=== PATIENT | female | born 1955 | race Caucasian/White ===

== ENCOUNTER 2023-08-25 22:53 | Inpatient (IN) | payer OTHER, SELFPAY ==
[2023-08-25 17:21] VITALS: BP 123/63
[2023-08-25 17:40] LABS: % Basophils 0.3 % (0-2); % Eosinophils 0.1 % (0-6); % Immature Granulocytes 1.2 % (0-0.5); % Monocytes 8.3 % (1.7-9.3); % Neutrophils 84.1 % (42.2-75.2); Absolute Basophils 0.1 10^3/uL (0-0.2); Absolute Immature Granulocytes 0.3 10^3/uL (0-0.05); Absolute Lymphocytes 1.4 10^3/uL (1.2-3.4); Absolute Monocytes 1.9 10^3/uL (0.1-0.6); Absolute Neutrophils 19.4 10^3/uL (1.4-6.5); Hematocrit 33.1 % (37.0-47.0); Hemoglobin 11.4 g/dL (12.0-16.0); Mean Corp Hgb Conc. 34.4 g/dL (33.0-37.0); Mean Corpuscular Hgb 31.7 pg (27.0-31.0); Mean Corpuscular Volume 91.9 fL (81.0-99.0); Nucleated Red Blood Cells % 0 %; Platelet Count 203 10^3/uL (130-400); Red Cell Dist. Width 11.7 % (11.5-14.5); White Blood Cell Count 23.1 10^3/uL (4.8-10.8)
[2023-08-25 17:55] LABS: COVID-19 Antigen Negative (Negative)
[2023-08-25 18:05] LABS: ALT (SGPT) 17 U/L (0-35); AST (SGOT) 21 U/L (14-36); Alkaline Phosphatase 140 U/L (38-126); Blood Urea Nitrogen 22 mg/dl (7-17); Calcium 8.6 mg/dl (8.4-10.2); Carbon Dioxide 21 mmol/L (22-30); Chloride 101 mmol/L (98-107); Glucose 145 mg/dl (70-99); Potassium 3.6 mmol/L (3.5-5.1); Sodium 133 mmol/L (135-145); Total Bilirubin 0.8 mg/dl (0.2-1.3); Total Protein 6.8 g/dl (6.3-8.2); eGFR > 60.00
[2023-08-25 19:06] VITALS: BMI 27.5
[2023-08-25 20:00] VITALS: BP 130/63
[2023-08-25 21:26] VITALS: BP 119/75
--- NOTE | 2023-08-25 21:54 | ED.GENMED ---
History of Present Illness
General
Chief Complaint: Breathing Problem
Source: patient
Exam Limitations: none
Time Seen by Provider: 08/25/23 20:17
Nursing documentation reviewed up to this point in time: agreed with
History of Present Illness
History of Present Illness:
Patient to ED for fever/bodyaches. States Friday she developed a sore throat. Friday fevers started. Reports temp as high as 103.8. Complains of chills and body aches. Reports occasional cough. Decreased appetite. No nausea, +diarrhea. She
was seen at and advised to come to ED for pneumonia. 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 No home O2. Brought to ED by family for eval. She is visiting from [place]
Past History
Past History
ED Past Medical History: COPD, HTN and Hypercholesterolemia
ED Past Surgical History: None
Social History
Tobacco: Former smoker (quit smoking last summer)
Alcohol: None
Review of Systems
Review of Systems
Allergies reviewed?: Yes
All Other Systems: ROS reviewed and negative except as documented in HPI and ROS
Constitutional: Reports fever, fatigue and chills
EENT: Reports no symptoms
Respiratory: Reports cough
Cardiac: Reports no symptoms
ABD/GI: Reports diarrhea and other (decreased appetite)
: Reports no symptoms
Musculoskeletal: Reports no symptoms
Skin: Reports no symptoms
Neurological: Reports no symptoms
Psychiatric: Reports no symptoms
Phy Exam
General Physical Exam
General Presentation: well appearing
General age: appears stated age
General Skin: warm
General Habitus: normal
General Mental: alert
Cardiovascular Exam
Cardiovascular Exam: regular rate/rhythm and no edema
Pulmonary Exam
Pulmonary Exam: chest non tender
Cough: coarse cough
Breath Sounds: Absent breath sounds: right lower
Gastrointestinal Exam
Gastrointestinal Exam: normal bowel sounds, non tender, soft and no organomegaly
Musculoskeletal Exam
Musculoskeletal Exam: full ROM and neuro vasc intact
Skin Exam
Skin Exam: normal color and warm/dry
Psychiatric Exam
Psychiatric Exam: normal mood/affect
Scores
Heart Failure Risk
Heart Failure Risk Score: Not Applicable
Course
Orders/Labs/Results
Orders:
Orders
08/25/23 Breakfast
Cholesterol Lowering
At Your Request: Full Participation
Cholesterol Lowering: Sodium, 2 Gram
08/25/23 17:32
COVID-19 Antigen Urgent
Source: Nasal Swab
Complete Blood Count/With Diff Urgent
Comprehensive Metabolic Panel Urgent
Blood Culture Urgent
[place] Source: Blood/Venous
Specimen Description:
08/25/23 19:18
Lactic Acid Urgent
Blood Culture Urgent
[facility] Source: Blood/Venous
Specimen Description:
08/25/23 20:17
CR Chest - 2 Views Urgent
Comment:
Reason For Exam: FEVER, COUUGH
08/25/23 21:45
CefTRIAXone [Rocephin] 1,000 mg IV NOW STA
Doxycycline [Vibramycin] 100 mg PO NOW STA
08/25/23 22:32
Sterile Water [Sterile Water For Injection] 10 ml .ROUTE .[facility]
08/25/23 22:35
Admit/Transfer Patient As Directed
Co-Sign Provider:
Level of Care: Inpatient admission
Assign to:: Medical/Surgical
Physician / Group: [email or web address]
Diagnosis: PNA, sepsis
Reason for Hospitalization: PNA, sepsis
Expected length of stay greater than two midnights?: Yes
ELOS- Estimated Length of Stay in days: 3
I certify the patient meets the requirements for IP care: Yes
Code Status As Directed
Resuscitation Status: Full Code
08/25/23 23:27
0.9% Sodium Chloride 1000 ml [Nss] 1,000 ml IV 80 mls/hr
Acetaminophen [Tylenol] 650 mg PO Q4HPRN PRN
Ipratropium/Albuterol Sulfate [Duoneb] 3 ml INH R Q4HPRN PRN
08/25/23 23:27
Legionella Urinary Antigen Routine
[facility] Source: Urine
Specimen Description:
Activity As Directed
Activity Level: Out of Bed-Early Mobility
Intake/ Output As Directed
Frequency: Per unit guidelines
Vital Signs As Directed
Frequency: Per unit guidelines
Weight As Directed
Frequency: Once
Comment: on admission
Pt Eval And Treat Routine
Activity Level: With Assistance
DX Deep Vein Thrombosis Video Routine
08/26/23 06:00
Basic Metabolic Panel IN AM
Complete Blood Count/No Diff IN AM
Lactic Acid IN AM
08/26/23 08:00
Guaifenesin [Mucinex] 600 mg PO Q12
08/26/23 18:00
Enoxaparin Sodium [Lovenox] 40 mg SC QPM
Abnormal Lab Results
08/25/23
17:32
WBC 23.1 H 10^3/uL
(4.8-10.8)
RBC 3.60 L 10^6/uL
(4.20-5.40)
Hgb 11.4 L g/dL
(12.0-16.0)
Hct 33.1 L %
(37.0-47.0)
MCH 31.7 H pg
(27.0-31.0)
Abs Immat Gran (auto) 0.3 H 10^3/uL
(0-0.05)
Absolute Neuts (auto) 19.4 H 10^3/uL
(1.4-6.5)
Absolute Monos (auto) 1.9 H 10^3/uL
(0.1-0.6)
Immature Gran % 1.2 H %
(0-0.5)
Neutrophils % 84.1 H %
(42.2-75.2)
Lymphocytes % 6.0 L %
(20.5-51.1)
Sodium 133 L mmol/L
(135-145)
Carbon Dioxide 21 L mmol/L
(22-30)
BUN 22 H mg/dl
(7-17)
Glucose 145 H mg/dl
(70-99)
Alkaline Phosphatase 140 H U/L
(38-126)
08/25/23 17:32
08/25/23 17:32
Vital Signs
Initial and Last Documented VS:
Initial Vital Signs
Temp Pulse Resp BP Pulse Ox
100.2 F 84 18 123/63 95
08/25/23 17:21 08/25/23 17:21 08/25/23 17:21 08/25/23 17:21 08/25/23 17:21
Last Documented Vital Signs
Temp Pulse Resp BP Pulse Ox
98.6 F 71 24 119/75 96
08/25/23 21:38 08/25/23 21:30 08/25/23 21:30 08/25/23 21:26 08/25/23 21:30
*Radiology
Radiology exam reviewed: radiology read reviewed (severe pneumonia)
*Pulse Oximetry
Patient hypoxic: no
*Critical Care Note
Total Time (30-74mins, 75-104mins- exclusive of procedures): Not Applicable
Update Note
Update Note:
Patient sent to ED from for severe pneumonial. Patient reports fever and chlls since Friday. Xray tonight confirms pneumonia. Ceftriaxone and doxycycline started in dept. SHe is admitted to hospitalists service.
ED Attending Note
-
Portions of this chart may have been created with voice recognition software.� Occasional wrong word or��sound alike� substitutions may have occurred due to the inherent limitations of voice recognition software.
Discharge Plan
Departure
Patient Disposition: Admit
Date of Disposition: 08/25/23
Time of Disposition: 22:02
Presentation/result/management discussed w/ accepting MD/DO: Hospitalist
Patient with high blood pressure during this ER visit?: No
Condition: Fair
Covid-19: Not Applicable
Discharge Problem:
Pneumonia
Interventions
Interventions:
*Risk Screen - Suicide Last Done: 08/25/23 19:10
*General Assessment Last Done: 08/25/23 19:10
*Neglect/Abuse Screening Last Done: 08/25/23 19:10
ED- Fall Risk Assessment Last Done: 08/25/23 19:10
*ED COVID-19 Vaccine History Last Done: 08/25/23 19:10
ED- Cardiac Assessment Last Done: 08/25/23 19:10
ED- Pulmonary Assessment Last Done: 08/25/23 19:10
--- NOTE | 2023-08-25 22:31 | HPS.HSE ---
Family Physician
-
Family Physician: NOT KNOW UNKNOWN - PT DOES
Chief Complaint
-
[place] [facility] [place]
History of Present Illness
68F HX COPD, HTN, HLD seen at ER from evaluation:
Acute fever with chills : T 110.8 at ER
- [place] [facility] [place]
- OP CXR concern for PNA sent to ER
- associated with cough
- associated myalgia
- POS N/ V
At ER:
- T 100.8 tachypneic 20s POx mid 90s on RA
Medical History
Past Medical History
Past Medical History: Reports COPD, HTN and Hypercholesterolemia
Past Surgical History: Reports None
Social History
Tobacco: Former Smoker (quit smoking last summer)
Drug: None
Family History
Family History: Not pertinent
Allergies / Home Medications
Allergies reflects when Allergies were last updated in [employer].
Home Medications with original date entered in [employer]
Allergy/Medication List:
Allergies
Allergy/AdvReac Type Severity Reaction Status Date / Time
No Known Allergies Allergy Unverified 08/25/23 17:23
If medication reconciliation has not been performed, why?: Medication List N/A
Review of Systems
-
Constitutional: Reports Fever and Chills
EENT: Reports No Symptoms
Respiratory: Reports See HPI, Cough and Trouble Breathing
Cardiac: Reports No Symptoms
Abdomen/GI: Reports No Symptoms
: Reports No Symptoms
Musculoskeletal: Reports No Symptoms
Skin: Reports No Symptoms
Neurological: Reports No Symptoms
Endocrine: Reports No Symptoms
Hematologic/Lymphatic: Reports No Symptoms
Psych: Reports No Symptoms
Physical Exam
Vital Signs
Vital Signs
Temp Pulse Resp BP Pulse Ox
98.6 F 71 24 119/75 96
08/25/23 21:38 08/25/23 21:30 08/25/23 21:30 08/25/23 21:26 08/25/23 21:30
Physical Exam
General: Well Developed, Well Nourished and No Apparent Distress
HEENT: NormoCephalic, Moist mucous membranes and Atraumatic
Respiratory: Clear
Cardiac: S1/S2 and Regular Rhythm; No Murmur or Rub
GI: Soft, Non Tender, Non Distended and Normal Bowel Sounds; No Organomegaly
Rectal: Deferred by Provider
Musculoskeletal: No Clubbing, No Cyanosis and No Edema
Skin: No Rash
Neuro: Nonfocal/grossly intact
Laboratory Results
-
08/25/23 17:32
08/25/23 17:32
Laboratory Results
Lactic Acid Cancelled 08/25/23 20:17
Total Bilirubin 0.8 mg/dl (0.2-1.3) 08/25/23 17:32
AST 21 U/L (14-36) 08/25/23 17:32
ALT 17 U/L (0-35) 08/25/23 17:32
Alkaline Phosphatase 140 U/L (38-126) H 08/25/23 17:32
Data Reviewed
-
Diagnostic Radiology: Report Reviewed by me
Lab Data: Labs Reviewed by me
Impression/Plan
-
Reviewed VS: T100.8 tachypneic 20s POx mid 90s on RA HR 70 BP 130/60 --> 120/75
Data
WCC 23
Hgb 11.4
Plt 203
Na 133
CO2 21
BUN 22
nl Cr
NEG Covid
CXR: Severe right mid-lung pneumonia.
NO PRIOR hospitalist admission:
ASSESSMENT & PLAN
Pending Rx reconciliation
PNA @ [facility] likely CAP
Associated sepsis ( T > 100.9, RR > 20 )
Eval for Bacteremia ?
Recent former smoker since this Summer
- agree with IV CFTX and PO Doxycycline
- IVF NS
- Nebs PRN
- Ur Legionella
- BCx
- Tylenol PRN
- f/u BCx
Essential HTN
- cont all OP chris
HLD
DVT Px: LMWH
Code: Full code
Ip MS
[2023-08-25] MEDS: ROCEPHIN 1000 MG IV (22:37)
[2023-08-25] MEDS: VIBRAMYCIN 100 MG PO (22:37)
[2023-08-25 23:33] VITALS: BMI 26.8
[2023-08-25 23:34] VITALS: BP 134/69
[2023-08-25] MEDS: NSS 1000 IV (23:59)
[2023-08-26] MEDS: TYLENOL 650 MG PO (00:17)
[2023-08-26 06:39] LABS: Hemoglobin 10.8 g/dL (12.0-16.0); Mean Corp Hgb Conc. 33.8 g/dL (33.0-37.0); Mean Corpuscular Hgb 31.7 pg (27.0-31.0); Mean Corpuscular Volume 93.8 fL (81.0-99.0); Mean Platelet Volume 10.1 fL (7.4-10.4); Platelet Count 209 10^3/uL (130-400); Red Blood Cell Count 3.41 10^6/uL (4.20-5.40); Red Cell Dist. Width 11.9 % (11.5-14.5); White Blood Cell Count 19.8 10^3/uL (4.8-10.8)
[2023-08-26 06:59] LABS: Blood Urea Nitrogen 21 mg/dl (7-17); Calcium 8.5 mg/dl (8.4-10.2); Carbon Dioxide 26 mmol/L (22-30); Chloride 104 mmol/L (98-107); Estimated Creatinine Clearance 63 ml/min; Glucose 102 mg/dl (70-99); Potassium 3.5 mmol/L (3.5-5.1); Sodium 138 mmol/L (135-145); eGFR > 60.00
[2023-08-26 07:00] VITALS: BP 109/62
[2023-08-26] MEDS: MUCINEX 600 MG PO ×2 (08:12→21:04)
[2023-08-26] MEDS: VIBRAMYCIN 100 MG PO ×2 (08:12→21:04)
--- NOTE | 2023-08-26 08:31 | W.PN.HOSP.TC ---
Today's Communication/Plan
-
see outlined plan
Assessment / Plan
Assessment / Plan
Assessment:
Community acquired pneumonia
Former smoker x 30 years, reports hx of lung scarring from previous COVID infection
- from [place], and follows with Pulmonary there
- CXR showing Severe right mid-lung pneumonia.
- for now will continue Rocephin, Doxycycline, day 1
- follow cultures
- IS/Acapella
- Supportive care/Tylenol
Essential HTN
- continue Norvasc/Losartan
HLD - statin
Hyponatremia
- improved with IVF
DVT ppx: Lovenox
Code: Full
Anticipated Discharge: 24 - 48 hours
Subjective/Interval History
-
Date of Service: August 26, 2023
denies SOB or cough
no fevers
reports some body aches
Objective Data
-
Labs:
Laboratory Results
08/26/23
06:08
WBC 19.8 H
Hgb 10.8 L
Hct 32.0 L
Plt Count 209
Sodium 138
Potassium 3.5
Chloride 104
Carbon Dioxide 26
BUN 21 H
Creatinine 0.8
Glucose 102 H
Calcium 8.5
Vital Signs:
Vital Signs
Temp Pulse Resp BP Pulse Ox
98.2 F 74 16 109/62 96
08/26/23 07:00 08/26/23 07:54 08/26/23 07:54 08/26/23 07:00 08/26/23 07:54
Physical Exam
-
General: No Apparent Distress
HEENT: Normocephalic and Atraumatic
Respiratory: Rhonchi (R mid lung); Negative Wheezes
Cardiac: Regular Rhythm and S1/S2
Genito-urinary: No Costovertebral Tender
Musculoskeletal: No Edema
Neuro: AO x 3
Psych: Calm
Data Reviewed
-
Total Time Spent with Patient (in minutes): 42
Labs: Labs Reviewed by me
[2023-08-26] MEDS: ZOFRAN 4 MG IV (10:32)
[2023-08-26 11:20] VITALS: BP 113/57; PULSE 73; O2SAT 96
[2023-08-26] MEDS: NSS 1000 IV (11:28)
[2023-08-26 11:36] VITALS: BP 113/57; PULSE 77; O2SAT 96
--- NOTE | 2023-08-26 11:42 | PTOTSP ---
Pt is independent with bed mobility, transfers, and ambulation without need for any assistive devices and is able to climb steps with a railing. No acute PT needs were identified. PT will sign off.
[2023-08-26 15:00] VITALS: BP 111/73
--- NOTE | 2023-08-26 16:13 | CM ---
Reviewed chart, met with patient to obtain information for assessment. Patient was with her daughter who was at bedside. Patient stated that she lives with her step daughter in [place] (she is here on vacation), in a multi-story home with 3 steps
to enter. She described herself as independent with all of her ADL, personal care, bathing and dressing. 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 She drives and can get to appointments and do her own shopping.
Patient denied any DME in her home.
She has never had VN services.
She has not been to a SNF.
Patient has a prescription plan and uses, [facility] for her medications
Her PCP is, not listed.
Patient stated that she feels she is at her baseline level of functioning and will be able to go home when she is medically stable.
Plan: Case management will continue to follow and assist with discharge planning. Patient would like to return home to [place] when she is medically cleared for discharge.
[2023-08-26] MEDS: LOVENOX 40 MG SC (17:20)
[2023-08-26] MEDS: STERILE WATER FOR INJECTION 10 ML IV (21:06)
[2023-08-26] MEDS: ROCEPHIN 1000 MG IV (21:06)
[2023-08-26 23:08] VITALS: BP 127/56
[2023-08-27] MEDS: NSS 1000 IV (00:11)
[2023-08-27 07:00] VITALS: BP 135/68
[2023-08-27 07:02] LABS: % Basophils 0.7 % (0-2); % Eosinophils 3.4 % (0-6); % Immature Granulocytes 2.1 % (0-0.5); % Lymphocytes 25.2 % (20.5-51.1); % Monocytes 9.6 % (1.7-9.3); Absolute Basophils 0.1 10^3/uL (0-0.2); Absolute Eosinophils 0.4 10^3/uL (0-0.7); Absolute Immature Granulocytes 0.2 10^3/uL (0-0.05); Absolute Lymphocytes 2.6 10^3/uL (1.2-3.4); Absolute Neutrophils 6.2 10^3/uL (1.4-6.5); Hemoglobin 9.9 g/dL (12.0-16.0); Mean Corpuscular Hgb 30.8 pg (27.0-31.0); Mean Corpuscular Volume 93.5 fL (81.0-99.0); Nucleated Red Blood Cells % 0 %; Platelet Count 222 10^3/uL (130-400); Red Blood Cell Count 3.21 10^6/uL (4.20-5.40); Red Cell Dist. Width 11.9 % (11.5-14.5); White Blood Cell Count 10.5 10^3/uL (4.8-10.8)
[2023-08-27 07:39] LABS: Blood Urea Nitrogen 11 mg/dl (7-17); Calcium 8.1 mg/dl (8.4-10.2); Carbon Dioxide 24 mmol/L (22-30); Chloride 111 mmol/L (98-107); Estimated Creatinine Clearance 83 ml/min; Glucose 91 mg/dl (70-99); Potassium 3.4 mmol/L (3.5-5.1); Sodium 140 mmol/L (135-145); eGFR > 60.00
[2023-08-27] MEDS: VIBRAMYCIN 100 MG PO ×2 (08:16→20:22)
[2023-08-27] MEDS: MUCINEX 600 MG PO ×2 (08:16→20:22)
--- NOTE | 2023-08-27 10:20 | PTCARENOTE ---
patient reports breathing improved, tolerating diet, sitting oob in chair, vss, will continue to monitor.
--- NOTE | 2023-08-27 11:14 | W.PN.HOSP.TC ---
Today's Communication/Plan
-
Monitor vital signs
see plan
Replete potassium
Continue with antibiotics
Assessment / Plan
Assessment / Plan
Assessment:
Community acquired pneumonia
Former smoker x 30 years, reports hx of lung scarring from previous COVID infection
- from [place], and follows with Pulmonary there
- CXR showing Severe right mid-lung pneumonia.
- continue Rocephin, Doxycycline
- covid,legionella,strep neg; bcx NGTD
- IS/Acapella
- Supportive care/Tylenol
Hypokalemia
replete
Mild anemia
Continue to monitor, denies any bleeding
Essential HTN
- continue Norvasc/Losartan
HLD - statin
Hyponatremia
- improved with IVF
DVT ppx: Lovenox
Code: Full
General: No Apparent Distress
HEENT: Normocephalic and Atraumatic
Respiratory: Rhonchi (R mid lung); Negative Wheezes
Cardiac: Regular Rhythm and S1/S2
Genito-urinary: No Costovertebral Tender
Musculoskeletal: No Edema
Neuro: AO x 3
Psych: Calm
Anticipated Discharge: 24 - 48 hours
Subjective/Interval History
-
Date of Service: August 27, 2023
denies pain
Objective Data
-
Labs:
Laboratory Results
08/27/23
06:33
WBC 10.5
Hgb 9.9 L
Hct 30.0 L
Plt Count 222
Sodium 140
Potassium 3.4 L
Chloride 111 H
Carbon Dioxide 24
BUN 11
Creatinine 0.6
Glucose 91
Calcium 8.1 L
Vital Signs:
Vital Signs
Temp Pulse Resp BP Pulse Ox
98.3 F 59 18 135/68 96
08/27/23 07:00 08/27/23 07:00 08/27/23 07:00 08/27/23 07:00 08/27/23 08:17
I&O
08/26/23 08/27/23 08/28/23
06:59 06:59 06:59
Intake Total 1640 / 1640
Balance 1640 / 1640
[2023-08-27] MEDS: KCL 20 MEQ PO (11:57)
[2023-08-27 15:00] VITALS: BP 133/64
[2023-08-27] MEDS: LOVENOX 40 MG SC (17:47)
[2023-08-27] MEDS: STERILE WATER FOR INJECTION 10 ML IV (21:23)
[2023-08-27] MEDS: ROCEPHIN 1000 MG IV (21:23)
[2023-08-27 22:56] VITALS: BP 140/66
[2023-08-28 06:51] LABS: % Basophils 0.6 % (0-2); % Eosinophils 4.7 % (0-6); % Immature Granulocytes 4.1 % (0-0.5); % Lymphocytes 26.9 % (20.5-51.1); % Neutrophils 54.7 % (42.2-75.2); Absolute Basophils 0.1 10^3/uL (0-0.2); Absolute Eosinophils 0.5 10^3/uL (0-0.7); Absolute Immature Granulocytes 0.5 10^3/uL (0-0.05); Absolute Lymphocytes 2.9 10^3/uL (1.2-3.4); Hematocrit 27.9 % (37.0-47.0); Hemoglobin 9.7 g/dL (12.0-16.0); Mean Corp Hgb Conc. 34.8 g/dL (33.0-37.0); Mean Corpuscular Hgb 31.6 pg (27.0-31.0); Mean Corpuscular Volume 90.9 fL (81.0-99.0); Mean Platelet Volume 9.7 fL (7.4-10.4); Nucleated Red Blood Cells % 0 %; Platelet Count 254 10^3/uL (130-400); Red Blood Cell Count 3.07 10^6/uL (4.20-5.40); Red Cell Dist. Width 12.2 % (11.5-14.5); White Blood Cell Count 10.9 10^3/uL (4.8-10.8)
[2023-08-28 07:17] LABS: Blood Urea Nitrogen 9 mg/dl (7-17); Calcium 8.8 mg/dl (8.4-10.2); Carbon Dioxide 20 mmol/L (22-30); Chloride 109 mmol/L (98-107); Estimated Creatinine Clearance 83 ml/min; Glucose 112 mg/dl (70-99); Potassium 3.7 mmol/L (3.5-5.1); Sodium 138 mmol/L (135-145); eGFR > 60.00
[2023-08-28 07:29] VITALS: BP 156/71
[2023-08-28] MEDS: MUCINEX 600 MG PO (07:38)
[2023-08-28] MEDS: VIBRAMYCIN 100 MG PO ×2 (07:39→20:13)
--- NOTE | 2023-08-28 09:24 | CM ---
Chart reviewed: per PT no skilled PT needed
Plan: discharge to home when medically stable; no needs anticipated
--- NOTE | 2023-08-28 10:58 | W.PN.HOSP.TC ---
Today's Communication/Plan
-
Monitor vital signs see plan
Restart losartan
Monitor leukocytosis
Continue with antibiotics
Add cough meds
Assessment / Plan
Assessment / Plan
Assessment:
Community acquired pneumonia
Former smoker x 30 years, reports hx of lung scarring from previous COVID infection
- from [place], and follows with Pulmonary there
- CXR showing Severe right mid-lung pneumonia.
- continue Rocephin, Doxycycline
- covid,legionella,strep neg; bcx NGTD
- IS/Acapella
- Supportive care/Tylenol
Hypokalemia
Improved
Mild anemia
Continue to monitor, denies any bleeding
Essential HTN
-Restart losartan
Continue hold amlodipine
HLD - statin
Hyponatremia
- improved with IVF
DVT ppx: Lovenox
Code: Full
General: No Apparent Distress
HEENT: Normocephalic and Atraumatic
Respiratory: Rhonchi (R mid lung); Negative Wheezes
Cardiac: Regular Rhythm and S1/S2
Genito-urinary: No Costovertebral Tender
Musculoskeletal: No Edema
Neuro: AO x 3
Psych: Calm
Anticipated Discharge: Within 24 hours
Subjective/Interval History
-
Date of Service: August 28, 2023
Denies pain
Objective Data
-
Labs:
Laboratory Results
08/28/23
06:25
WBC 10.9 H
Hgb 9.7 L
Hct 27.9 L
Plt Count 254
Sodium 138
Potassium 3.7
Chloride 109 H
Carbon Dioxide 20 L
BUN 9
Creatinine 0.6
Glucose 112 H
Calcium 8.8
Vital Signs:
Vital Signs
Temp Pulse Resp BP Pulse Ox
99 F 69 16 156/71 99
08/28/23 07:29 08/28/23 07:29 08/28/23 07:29 08/28/23 07:29 08/28/23 07:45
I&O
08/27/23 08/28/23 08/29/23
06:59 06:59 06:59
Intake Total 1640 / 1640 810 / 810
Balance 1640 / 1640 810 / 810
[2023-08-28] MEDS: COZAAR 100 MG PO (12:40)
[2023-08-28 15:35] VITALS: BP 152/65
[2023-08-28] MEDS: LOVENOX 40 MG SC (16:59)
[2023-08-28] MEDS: MUCINEX 1200 MG PO (20:13)
[2023-08-28] MEDS: TESSALON PERLES 200 MG PO (20:17)
[2023-08-28] MEDS: ROCEPHIN 1000 MG IV (22:02)
[2023-08-28] MEDS: STERILE WATER FOR INJECTION 10 ML IV (22:02)
[2023-08-28 23:38] VITALS: BP 135/62
[2023-08-29 07:04] LABS: % Basophils 0.6 % (0-2); % Eosinophils 4.4 % (0-6); % Immature Granulocytes 5.4 % (0-0.5); % Lymphocytes 28.1 % (20.5-51.1); % Monocytes 8.1 % (1.7-9.3); % Neutrophils 53.4 % (42.2-75.2); Absolute Basophils 0.1 10^3/uL (0-0.2); Absolute Eosinophils 0.5 10^3/uL (0-0.7); Absolute Immature Granulocytes 0.6 10^3/uL (0-0.05); Absolute Monocytes 0.9 10^3/uL (0.1-0.6); Absolute Neutrophils 5.8 10^3/uL (1.4-6.5); Hematocrit 29.8 % (37.0-47.0); Hemoglobin 9.9 g/dL (12.0-16.0); Mean Corp Hgb Conc. 33.2 g/dL (33.0-37.0); Mean Corpuscular Volume 93.4 fL (81.0-99.0); Mean Platelet Volume 9.7 fL (7.4-10.4); Nucleated Red Blood Cells % 0 %; Platelet Count 271 10^3/uL (130-400); Red Blood Cell Count 3.19 10^6/uL (4.20-5.40); Red Cell Dist. Width 11.9 % (11.5-14.5); White Blood Cell Count 10.8 10^3/uL (4.8-10.8)
[2023-08-29 07:28] LABS: Blood Urea Nitrogen 9 mg/dl (7-17); Calcium 8.7 mg/dl (8.4-10.2); Carbon Dioxide 24 mmol/L (22-30); Chloride 107 mmol/L (98-107); Estimated Creatinine Clearance 83 ml/min; Glucose 96 mg/dl (70-99); Potassium 3.9 mmol/L (3.5-5.1); Sodium 139 mmol/L (135-145); eGFR > 60.00
[2023-08-29 07:46] VITALS: BP 136/66
[2023-08-29] MEDS: LIPITOR 20 MG PO (08:17)
[2023-08-29] MEDS: MUCINEX 1200 MG PO (08:17)
[2023-08-29] MEDS: COZAAR 100 MG PO (08:17)
[2023-08-29] MEDS: VIBRAMYCIN 100 MG PO (08:17)
--- NOTE | 2023-08-29 10:20 | W.PN.HOSP.TC ---
Today's Communication/Plan
-
Monitor vital signs see plan
Switch antibiotics to oral on discharge
need chest x-ray in 4 weeks to ensure resolution
Time of discharge 38 minutes
Assessment / Plan
Assessment / Plan
Assessment:
Community acquired pneumonia
Former smoker x 30 years, reports hx of lung scarring from previous COVID infection
- from [place], and follows with Pulmonary there
- CXR showing Severe right mid-lung pneumonia.
- continue Rocephin, Doxycycline; switch to cefdinir and doxycycline to complete treatment. Patient will need chest x-ray in 4 weeks to ensure resolution
- covid,legionella,strep neg; bcx NGTD
- IS/Acapella
- Supportive care/Tylenol
Hypokalemia
Improved
Mild anemia
Continue to monitor, denies any bleeding
Essential HTN
-Restart losartan
Continue hold amlodipine
HLD - statin
Hyponatremia
- improved with IVF
DVT ppx: Lovenox
Code: Full
General: No Apparent Distress
HEENT: Normocephalic and Atraumatic
Respiratory: Rhonchi (R mid lung); Negative Wheezes
Cardiac: Regular Rhythm and S1/S2
Genito-urinary: No Costovertebral Tender
Musculoskeletal: No Edema
Neuro: AO x 3
Psych: Calm
Anticipated Discharge: Today
Subjective/Interval History
-
Date of Service: August 29, 2023
denies pain
Objective Data
-
Labs:
Laboratory Results
24 08/29/23
06:26 06:27
WBC 10.8
Hgb 9.9 L
Hct 29.8 L
Plt Count 271
Sodium 139
Potassium 3.9
Chloride 107
Carbon Dioxide 24
BUN 9
Creatinine 0.6
Glucose 96
Calcium 8.7
Vital Signs:
Vital Signs
Temp Pulse Resp BP Pulse Ox
98.7 F 63 16 136/66 94
08/29/23 07:46 08/29/23 08:17 08/29/23 07:46 08/29/23 08:17 08/29/23 07:46
I&O
08/28/23 08/29/23 08/30/23
06:59 06:59 06:59
Intake Total 810 / 810 1979
Balance 810 / 810 1979
--- NOTE | 2023-08-29 10:24 | W.DCSUMMARY ---
Discharge Summary
Discharge Data
Date of Admission: 08/25/23
Date of Discharge: 08/29/23
-
Pending Results: No
Hospital Course
68-year-old female with past medical history of essential hypertension, hyperlipidemia came with shortness of breath. Chest x-ray was consistent with right midlung pneumonia. Patient was initially started on IV antibiotics which was later
transitioned to oral antibiotics prior to discharge. COVID, Legionella, strep was negative. Once patient symptoms continue to improve, she was then discharged home with instructions to follow-up with PCP outpatient. Patient was also instructed to
get repeat chest x-ray in 4 weeks to ensure resolution.
Discharge Plan
-
Patient Disposition: Home (Routine Discharge)
Discharge Diagnosis/Procedures: Community-acquired pneumonia
Mild anemia
Diet: As tolerated
Activity: As tolerated
Driving Restrictions: As prior to admission
Bathing Restrictions: None
Others Tests: need chest x-ray in 4 weeks to ensure resolution
Referrals:
UNKNOWN - PT DOES,NOT KNOW [Family Provider] - in less than 1 week
Prescriptions:
New
benzonatate 100 mg Capsule
200 mg PO TIDPRN PRN (Reason: cough) Qty: 14 0RF
guaifenesin 600 mg Tablet Extended Release 12hr
1,200 mg PO Q12 Qty: 28 0RF
acetaminophen 325 mg Tablet
650 mg PO Q4HPRN PRN (Reason: if temp > 101 F) Qty: 0 0RF
doxycycline hyclate 100 mg Capsule
100 mg PO Q12 Qty: 10 0RF
cefdinir 300 mg capsule
300 mg PO BID Qty: 10 0RF
Continued
atorvastatin 20 mg Tablet
20 mg PO DAILY
amlodipine [Norvasc] 2.5 mg Tablet
2.5 mg PO DAILY
losartan 100 mg Tablet
100 mg PO DAILY
Discharge Orders:
Discharge Patient (As Directed); Ordered 08/29/23
Ordered By: Calderon Almaraz
Discharge Date and Time
Discharge Date/Time: 08/29/23 13:27
Print Language: BULGARIAN
[2023-08-29 13:22] VITALS: BP 138/61
== END 2023-08-29 13:27 | disposition home or self-care (01) | DRG 194 ==
LOC: 3 WEST ACU 22:53
PROVIDERS: Internal Medicine; ADMITTING PHYSICIAN Internal Medicine; ATTENDING PHYSICIAN Internal Medicine; EMERGENCY PHYSICIAN Emergency Medicine
DX: J18.9 Pneumonia, unspecified organism (principal); E87.1 Hypo-osmolality and hyponatremia; J44.0 Chronic obstructive pulmonary disease with (acute) lower respiratory infection; I10 Essential (primary) hypertension; D64.9 Anemia, unspecified; E78.00 Pure hypercholesterolemia, unspecified; E87.6 Hypokalemia; Z86.16 Personal history of COVID-19; Z87.891 Personal history of nicotine dependence
CPT/HCPCS: 71046; 80048; 80053; 83605; 85025; 85027; 87040; 87449; 87811; 87899; 97162; 97166; 99285